=== PATIENT | female | born 1995 | race Caucasian/White ===

== ENCOUNTER 2016-10-29 14:54 | Emergency (ER) | payer SELFPAY ==
[~2016-10-29] VITALS: Ht 162.6 cm; Wt 122.5 kg
[~2016-10-29 14:54] MED LIST: AZTH250C PO; BUTA1CAP45 PO; CEPH-38 PO; CYCL10TA9 PO; IBUPROFEN; LANS15CA27; MEDR150V IM; MTF500T
--- NOTE | 2016-10-29 16:03 | ED Abdominal Pain ---
General Chief Complaint: Abdominal/GI Problems Stated Complaint: ABD PAIN/BLOODY STOOL Nursing Triage Note: Pt reports noticing bright red blood in her stool today. Pt also reports R side abd pain. Pt also c/o nausea for past week. Source of Information: Patient Exam Limitations: No Limitations History of Present Illness Time Seen By Provider: 16:01 Initial Comments This 20-year-old female presents with a history of bright red blood in her stool today the patient has associated right-sided abdominal pain she is complaining of nausea over the past week. The patient denies associated abdominal pain, history of bleeding disorder, the use of blood thinners, or easy bruising and bleeding history Allergies and Home Medications Allergies Coded Allergies: No Known Drug Allergies (Unverified Allergy, Mild, 10/04/08) Home Medications Medroxyprogesterone Acetate 150 Mg/1 Ml Vial, 150 MG IM EVERY 3 MO, (Reported) Review of Systems Constitutional: No chills, No fever EENTM: No Blurred Vision Respiratory: Denies Cough Cardiovascular: Denies Chest Pain Gastrointestinal: Denies Abdomen Distended, Denies Abdominal Pain, Denies Nausea, Rectal Bleeding, Denies Vomiting Genitourinary: Denies Burning, Denies Frequency Musculoskeletal: No back pain Skin: No rash Psychiatric/Neurological: No Symptoms Reported Endocrine: No Symptoms Reported Hematologic/Lymphatic: No Symptoms Reported Past Vykhtmz-Szwygd-Pjyunj Hx Patient Social History Alcohol Use: Denies Use Recreational Drug Use: No Smoking Status: Never a Smoker 2nd Hand Smoke Exposure: Yes Recent Foreign Travel: No Contact w/Someone Who Travel: No Recent Infectious Disease Expo: No Recent Hopitalizations: No Immunizations Up To Date PED Vaccines UTD: Yes Seasonal Allergies Seasonal Allergies: No Surgeries HX Surgeries: Yes (DENTAL-2 WISDOM TEETH REMOVED) Surgeries: Adenoidectomy, Tonsillectomy Respiratory Hx Respiratory Disorders: No Cardiovascular Hx Cardiac Disorders: No Neurological Hx Neurological Disorders: Yes Neurological Disorders: Headaches /Migraines Reproductive System Hx Reproductive Disorders: No Sexually Transmitted Disease: No Genitourinary Hx Genitourinary Disorders: No Gastrointestinal Hx Gastrointestinal Disorders: No Musculoskeletal Hx Musculoskeletal Disorders: No Endocrine Hx Endocrine Disorders: No HEENT HX ENT Disorders: No Cancer Hx Cancer: No Psychosocial Hx Psychiatric Problems: No Integumentary HX Skin/Integumentary Disorder: No Blood Transfusions Hx Blood Disorders: No Reviewed Nursing Assessment Reviewed/Agree w Nursing PMH: Yes Physical Exam Vital Signs VS - Last 72 Hours, by Label 10/29/16 15:13 Temp 98.9 Pulse 71 Resp 18 B/P (MAP) 145/79 O2 Delivery Room Air Capillary Refill : General Appearance: WD/WN, no apparent distress Neck: normal inspection Respiratory: normal breath sounds Cardiovascular: normal peripheral pulses, regular rate, rhythm, no murmur Gastrointestinal: normal bowel sounds, non tender, soft Rectal: normal exam, normal rectal tone, heme negative stool Extremities: normal range of motion, non-tender, normal inspection Back: normal inspection, no CVA tenderness, no vertebral tenderness Neurologic/Psychiatric: no motor/sensory deficits, alert, normal mood/affect Skin: normal color, warm/dry, No ecchymosis, No jaundice Progress/Results/Core Measures Results/Orders Lab Results Laboratory Tests Test 10/29/16 16:40 Range/Units White Blood Count 13.8 H 4.3-11.0 10^3/uL Red Blood Count 5.19 4.35-5.85 10^6/uL Hemoglobin 12.0 11.5-16.0 G/DL Hematocrit 38 35-52 % Mean Corpuscular Volume 73 L 80-99 FL Mean Corpuscular Hemoglobin 23 L 25-34 PG Mean Corpuscular Hemoglobin Concent 32 32-36 G/DL Red Cell Distribution Width 17.3 H 10.0-14.5 % Platelet Count 420 H 130-400 10^3/uL Mean Platelet Volume 9.9 7.4-10.4 FL Neutrophils (%) (Auto) 68 42-75 % Lymphocytes (%) (Auto) 22 12-44 % Monocytes (%) (Auto) 8 0-12 % Eosinophils (%) (Auto) 2 0-10 % Basophils (%) (Auto) 0 0-10 % Neutrophils # (Auto) 9.3 H 1.8-7.8 X 10^3 Lymphocytes # (Auto) 3.1 1.0-4.0 X 10^3 Monocytes # (Auto) 1.2 H 0.0-1.0 X 10^3 Eosinophils # (Auto) 0.2 0.0-0.3 10^3/uL Basophils # (Auto) 0.0 0.0-0.1 10^3/uL Prothrombin Time 12.7 12.2-14.7 SEC INR Comment 1.0 0.8-1.4 Sodium Level 142 135-145 MMOL/L Potassium Level 3.5 L 3.6-5.0 MMOL/L Chloride Level 110 H 98-107 MMOL/L Carbon Dioxide Level 20 L 21-32 MMOL/L Anion Gap 12 5-14 MMOL/L Blood Urea Nitrogen 17 7-18 MG/DL Creatinine 0.72 0.60-1.30 MG/DL Estimat Glomerular Filtration Rate > 60 BUN/Creatinine Ratio 24 H 0-20 Glucose Level 83 70-105 MG/DL Calcium Level 9.7 8.5-10.1 MG/DL Total Bilirubin 0.2 0.1-1.0 MG/DL Aspartate Amino Transf (AST/SGOT) 15 5-34 U/L Alanine Aminotransferase (ALT/SGPT) 13 0-55 U/L Alkaline Phosphatase 117 40-136 U/L Total Protein 7.9 6.4-8.2 GM/DL Albumin 4.0 3.2-4.5 GM/DL Lipase 20 8-78 U/L My Orders Orders - TRISTA MOISE MD Cbc With Automated Diff (10/29/16 16:03) Comprehensive Metabolic Panel (10/29/16 16:03) Lipase (10/29/16 16:03) Ua Culture If Indicated (10/29/16 16:03) Occult Blood Stool (10/29/16 16:03) Protime With Inr (10/29/16 16:25) Vital Signs/I&O Vital Sign - Last 12Hours 10/29/16 15:13 Temp 98.9 Pulse 71 Resp 18 B/P (MAP) 145/79 O2 Delivery Room Air Progress Note : Time: 17:40 Progress Note The patient's laboratory evaluation was unremarkable including an INR of 1. I discussed the findings with the patient. I reassured her that her exam at this time was unremarkable. I asked that she follow up with her primary care physician Tuesday for further evaluation and possible referral for GI for colonoscopy. Departure Impression Impression: Primary Impression: Rectal bleeding Disposition: HOME, SELF-CARE Condition: Improved Departure-Patient Inst. Decision time for Depature: 17:41 [place]: [facility] [place] Primary Care Physician Add. Discharge Instructions: Follow-up closely with [facility] on Tuesday. Return if any further rectal bleeding. All discharge instructions reviewed with patient and/or family. Voiced understanding. TRISTA MOISE MD Oct 29, 2016 16:02
[2016-10-29 16:46] LABS: BASOPHILS % (AUTO) 0 % (0-10); EOSINOPHILS # (AUTO) 0.2 10^3/uL (0.0-0.3); EOSINOPHILS % (AUTO) 2 % (0-10); LYMPHOCYTES # (AUTO) 3.1 X 10^3 (1.0-4.0); LYMPHOCYTES % (AUTO) 22 % (12-44); MEAN CORPUSCULAR HEMOGLOBIN 23 PG (25-34); MEAN CORPUSCULAR HGB CONC 32 G/DL (32-36); MEAN CORPUSCULAR VOLUME 73 FL (80-99); MEAN PLATELET VOLUME 9.9 FL (7.4-10.4); MONOCYTES # (AUTO) 1.2 X 10^3 (0.0-1.0); MONOCYTES % (AUTO) 8 % (0-12); NEUTROPHILS # (AUTO) 9.3 X 10^3 (1.8-7.8); NEUTROPHILS % (AUTO) 68 % (42-75); PLATELET COUNT 420 10^3/uL (130-400); RED BLOOD COUNT 5.19 10^6/uL (4.35-5.85); RED CELL DISTRIBUTION WIDTH 17.3 % (10.0-14.5); WHITE BLOOD COUNT 13.8 10^3/uL (4.3-11.0)
[2016-10-29 16:59] LABS: PROTHROMBIN TIME PATIENT 12.7 SEC (12.2-14.7)
[2016-10-29 17:10] LABS: ALANINE AMINOTRANSFERASE 13 U/L (0-55); ANION GAP 12 MMOL/L (5-14); ASPARTATE AMINO TRANSFERASE 15 U/L (5-34); BILIRUBIN,TOTAL 0.2 MG/DL (0.1-1.0); BLOOD UREA NITROGEN 17 MG/DL (7-18); BUN/CREATININE RATIO 24 (0-20); CALCIUM 9.7 MG/DL (8.5-10.1); CARBON DIOXIDE 20 MMOL/L (21-32); CHLORIDE 110 MMOL/L (98-107); CREATININE SERUM 0.72 MG/DL (0.60-1.30); GFR ESTIMATED > 60; GLUCOSE 83 MG/DL (70-105); HEMOLYSIS 0 (-100-29); ICTERUS 0.2 (-100-1.9); LIPASE 20 U/L (8-78); LIPEMIA 7 (-100-49); POTASSIUM 3.5 MMOL/L (3.6-5.0); SODIUM 142 MMOL/L (135-145); TOTAL PROTEIN 7.9 GM/DL (6.4-8.2)
== END 2016-10-29 18:28 | disposition home or self-care (01) ==
LOC: EDUNIT# 14:54 → ER 14:56
DX: K62.5 Hemorrhage of anus and rectum (principal)
CPT/HCPCS: 36415; 80053; 83690; 85025; 85610; 99282

== ENCOUNTER → 2016-11-10 | Outpatient (CLI) | payer SELFPAY ==
--- NOTE | 2016-11-10 08:22 | Diagnostic Imaging Report ---
PROCEDURE: US Gallbladder. TECHNIQUE: Multiple real-time grayscale images were obtained over the right upper quadrant in various projections. INDICATION: Right upper quadrant pain. FINDINGS: Right upper quadrant ultrasound demonstrates poor visualization of the pancreas. The liver appears normal. No masses or duct dilatation is present. Flow within the portal vein appears unremarkable. Gallbladder appears normal. No gallstones, pericholecystic fluid or ascites is present. Gallbladder wall is of normal thickness measuring 2.4 mm. Common bile duct is normal caliber measuring 4.8 mm. The right kidney appears normal measuring 10 x 4.7 x 4.4 cm. IMPRESSION: Normal right upper quadrant ultrasound. The pancreas is not well imaged. Dictated by: Dictated on workstation # [id number]
== END ==
LOC: RAD 06:47
PROVIDERS: ATTEND Nurse Practitioner Family
DX: R10.11 Right upper quadrant pain (principal)
CPT/HCPCS: 76705